=== PATIENT | female | born 1980 | race Caucasian/White ===

== ENCOUNTER 2021-01-16 17:10 | Emergency (ER) | payer OTHER ==
[~2021-01-16] VITALS: Ht 165.1 cm; Wt 127.5 kg
[2021-01-16 18:16] LABS: URINE BILIRUBIN NEGATIVE (Negative); URINE BLOOD 1+ (Negative); URINE CLARITY CLEAR; URINE COLOR YELLOW; URINE GLUCOSE-RANDOM* NEGATIVE (Negative); URINE KETONES NEGATIVE (Negative); URINE NITRITE-REFLEX NEGATIVE (Negative); URINE PROTEIN (DIPSTICK) NEGATIVE (Negative); URINE UROBILINOGEN 0.2 E.U./dl (0.2-1.0)
[2021-01-16 18:20] LABS: URINE LEUKOCYTES-REFLEX 1+ (Negative)
[2021-01-16 18:23] LABS: BACTERIA-REFLEX 1-9 Few /HPF (None Seen); CASTS None Seen /LPF (None Seen); CRYSTALS None Seen /LPF (None Seen); SQUAMOUS 4-10 Moderate /LPF (0-3); URINE RBC 1-2 Rare /HPF (NONE SEEN); URINE WBC-REFLEX 0-5 Rare /HPF (0-5)
[2021-01-16 18:32] LABS: HEMATOCRIT 38.4 % (37.0-47.0); HEMOGLOBIN 12.9 gm/dL (12.0-15.0); MCH 28.5 pg (26.0-34.0); MCHC 33.7 g/dL (28.0-37.0); MCV 84.5 fL (80.0-100.0); RBC 4.54 mil/uL (4.20-5.00); RDW 13.4 % (10.5-14.5); WBC 7.8 thou/uL (4.0-11.0)
[2021-01-16 18:53] LABS: ALBUMIN 3.6 g/dL (3.4-5.0); CALCIUM 9.3 mg/dL (8.5-10.1); POTASSIUM 3.8 mmol/L (3.5-5.1); TOTAL BILIRUBIN 0.2 mg/dL (0.2-1.0); TOTAL PROTEIN 7.9 g/dL (6.4-8.2)
[2021-01-16] MEDS ORDERED: CEPHALEXIN 250250 M1 PO (19:57)
[2021-01-16] MEDS ORDERED: CLONAZEPAM 1 MG1 M1 PO (19:57)
[2021-01-16 20:31] VITALS: BP 146/58
--- NOTE | 2021-01-17 12:05 | EKG ---
[address] [address] [place] [address] ELECTROCARDIOGRAM REPORT Name: MARIANNE REYNOSO Room #: [facility] Tex#: [id number] Admission: 01/16/21 Attend Phys: Discharge: 01/16/21 Date of : 80 Report #: [id number] [facility] ED Test Date: 2021-01-16 Test Time: 17:34:48 Pat Name: MARIANNE REYNOSO Department: Room: Gender: F Spinner Hand: JENNIFER : 1980 Requested By: Claire Hoyt Order Number: [id number] MD: Duane Chase Measurements Intervals [place] Rate: 97 P: 36 [place]: 159 QRS: -44 QRSD: 99 T: 30 QT: 336 QTc: 427 Interpretive Statements Sinus rhythm RSR' in V1 or V2, right VCD or RVH Inferior infarct, old Baseline wander in lead(s) V2,V5 No previous ECG available for comparison Electronically Signed On 01-17-2021 12:05:13 AUTOMATED WEAVER by Duane Chase [email or web address] <ELECTRONICALLY SIGNED> By: Duane Chase MD, [facility] 01/17/21 1205 1734 173 Duane Chase MD, FACC /EPI
[2021-01-17] MEDS ORDERED: CEPHALEXIN 250250 M1 PO (19:34)
[2021-01-17] MEDS ORDERED: CLONAZEPAM 1 MG1 M1 PO (19:34)
== END 2021-01-16 20:30 | disposition home or self-care (01) ==
LOC: ER 17:10
PROVIDERS: Nurse Practitioner Family
DX: F41.9 Anxiety disorder, unspecified (principal); N39.0 Urinary tract infection, site not specified; G43.909 Migraine, unspecified, not intractable, without status migrainosus; F12.90 Cannabis use, unspecified, uncomplicated

== ENCOUNTER 2021-04-21 17:32 | Emergency (ER) | payer OTHER ==
[~2021-04-21] VITALS: Ht 165.1 cm; Wt 129.3 kg
[~2021-04-21 17:32] MED LIST: CEPHALEXIN 250250 M1 PO; CLONAZEPAM 1 MG1 M1 PO
[2021-04-21 17:58] LABS: URINE BILIRUBIN NEGATIVE (Negative); URINE BLOOD 3+ (Negative); URINE CLARITY CLEAR; URINE COLOR YELLOW; URINE GLUCOSE-RANDOM* NEGATIVE (Negative); URINE KETONES NEGATIVE (Negative); URINE LEUKOCYTES-REFLEX NEGATIVE (Negative); URINE NITRITE-REFLEX NEGATIVE (Negative); URINE PROTEIN (DIPSTICK) NEGATIVE (Negative); URINE SPECIFIC GRAVITY 1.025 (1.005-1.035); URINE UROBILINOGEN 0.2 E.U./dl (0.2-1.0)
[2021-04-21 18:12] LABS: BASOPHILS 0.7 % (0.0-2.0); EOSINOPHILS 2.7 % (0.0-3.0); HEMATOCRIT 35.3 % (37.0-47.0); HEMOGLOBIN 12.1 gm/dL (12.0-15.0); LYMPHOCYTES 35.1 % (24.0-44.0); MCH 28.6 pg (26.0-34.0); MCHC 34.4 g/dL (28.0-37.0); MCV 83.1 fL (80.0-100.0); MONOCYTES 5.2 % (1.0-8.0); PLATELET COUNT 311 thou/uL (150-400); POLYS 56.3 % (36.0-66.0); RBC 4.24 mil/uL (4.20-5.00); RDW 13.6 % (10.5-14.5); WBC 7.2 thou/uL (4.0-11.0)
[2021-04-21 18:14] LABS: SQUAMOUS 4-10 Moderate /LPF (0-3)
[2021-04-21 18:15] LABS: AMP/METHAMP Negative (Negative); BARBITURATES Negative (Negative); BENZODIAZEPINES Negative (Negative); COCAINE Negative (Negative); METHADONE Negative (Negative); OPIATES Negative (Negative); PCP Negative (Negative)
[2021-04-21 18:16] LABS: BACTERIA-REFLEX 1-9 Few /HPF (None Seen); CASTS None Seen /LPF (None Seen); CRYSTALS None Seen /LPF (None Seen); URINE WBC-REFLEX 0-5 Rare /HPF (0-5)
[2021-04-21 18:18] LABS: CALCIUM 9.6 mg/dL (8.5-10.1); CREATININE 0.9 mg/dL (0.6-1.0)
[2021-04-21 18:27] LABS: ALBUMIN 3.9 g/dL (3.4-5.0); MAGNESIUM 2.1 mg/dL (1.8-2.4); TOTAL BILIRUBIN 0.1 mg/dL (0.2-1.0); TOTAL PROTEIN 7.9 g/dL (6.4-8.2)
[2021-04-21] MEDS ORDERED: MECLIZINE HCL25 M1 PO (20:13)
[2021-04-21] MEDS ORDERED: ATIVAN0.5 M1 PO ×2 (20:14→20:18)
[2021-04-21 20:32] VITALS: BP 120/60
--- NOTE | 2021-04-22 07:50 | EKG ---
[address] [address] [facility] [address] ELECTROCARDIOGRAM REPORT Name: MARIANNE REYNOSO Room #: [facility] Tex#: [id number] Admission: 04/21/21 Attend Phys: Discharge: 04/21/21 Date of : [birth year] Report #: [id number] [facility] ED Test Date: 2021-04-21 Test Time: 17:44:23 Pat Name: AMRIANNE REYNOSO Department: Room: Gender: F Colleter: KARLY : 1980 Requested By: Cristiana Mo Order Number: [id number] MD: Duane Chase Measurements Intervals [place] Rate: 83 P: 40 [place]: 160 QRS: -39 QRSD: 104 T: 30 QT: 359 QTc: 422 Interpretive Statements Sinus rhythm Abnormal R-wave progression, early transition Inferior infarct, old Baseline wander in lead(s) I,III,aVL,aVF,V1 Compared to ECG 01/16/2021 17:34:48 Right ventricular hypertrophy no longer present Myocardial infarct finding still present Electronically Signed On 04-22-2021 7:50:04 INTERMEDIATE DESIGNER by Duane Chase [email or web address] <ELECTRONICALLY SIGNED> By: Duane Chase MD, FAC 04/22/21 0750 1744 1744 Duane Chase MD, [facility] /EPI
== END 2021-04-21 20:35 | disposition home or self-care (01) ==
LOC: ER 17:32
PROVIDERS: Physician Assistant
DX: F41.9 Anxiety disorder, unspecified (principal); R42 Dizziness and giddiness; G43.909 Migraine, unspecified, not intractable, without status migrainosus; Z79.899 Other long term (current) drug therapy